=== PATIENT | female | born 1960 | race Caucasian/White ===

== ENCOUNTER 2017-02-08 00:27 | Emergency (ER) | payer BC ==
[2017-02-08 01:30] LABS: BASOPHIL % 0.5 % (0-2); PLATELET COUNT 220 x10^3mcL (130-400); RED CELL DISTRIBUTION WIDTH 13.1 % (11.5-14.5)
[2017-02-08 01:32] LABS: CALCIUM 9.7 mg/dL (8.5-10.1); CARBON DIOXIDE 30.7 mmol/L (21-32); CHLORIDE SERUM 102 mmol/L (98-107); GFR1 > 60 mL/min; GLUCOSE SERUM 150 mg/dL (74-106); POTASSIUM SERUM 3.8 mmol/L (3.5-5.1); SODIUM SERUM 143 mmol/L (136-145)
[2017-02-08 01:37] LABS: ALBUMIN 4.2 g/dL (3.4-5.0); ALKALINE PHOSPHATASE 79 U/L (46-116); ALT/SGPT 42 U/L (14-59); AMYLASE 39 U/L (25-115); AST/SGOT 19 U/L (15-37); BILIRUBIN TOTAL 0.32 mg/dL (0.20-1.00); LIPASE 218 IU/L (73-393); TOTAL PROTEIN, SERUM 8.5 g/dL (6.4-8.2)
[2017-02-08 02:44] VITALS: BP 157/105
[2017-02-08] MEDS ORDERED: SYNTHROID0.05 MG (22:11)
== END 2017-02-08 02:35 | disposition left against medical advice (07) ==
LOC: ED 00:27
PROVIDERS: Emergency Medicine
DX: R10.13 Epigastric pain (principal); R07.89 Other chest pain; M54.9 Dorsalgia, unspecified
CPT/HCPCS: 36415; J2270; J2405; J7030; Q0092; Q9967

== ENCOUNTER 2017-02-08 18:29 | Inpatient (IN) | payer BC ==
[~2017-02-08] VITALS: Ht 162.6 cm; Wt 93.4 kg
[2017-02-08 20:22] LABS: BASOPHIL % 0.5 % (0-2); PLATELET COUNT 213 x10^3mcL (130-400); RED CELL DISTRIBUTION WIDTH 12.9 % (11.5-14.5)
[2017-02-08 20:29] LABS: CALCIUM 9.4 mg/dL (8.5-10.1); CARBON DIOXIDE 27.7 mmol/L (21-32); CHLORIDE SERUM 101 mmol/L (98-107); CREATININE SERUM 0.9 mg/dL (0.6-1.0); GFR1 > 60 mL/min; GLUCOSE SERUM 122 mg/dL (74-106); POTASSIUM SERUM 3.6 mmol/L (3.5-5.1); SODIUM SERUM 138 mmol/L (136-145)
[2017-02-08 20:38] LABS: ALKALINE PHOSPHATASE 77 U/L (46-116); ALT/SGPT 33 U/L (14-59); AMYLASE 31 U/L (25-115); AST/SGOT 18 U/L (15-37); BILIRUBIN TOTAL 0.6 mg/dL (0.20-1.00); LIPASE 135 IU/L (73-393)
[2017-02-08] MEDS ORDERED: SYNTHROID0.05 MG (22:11)
[2017-02-08 22:33] LABS: MAGNESIUM 1.9 mg/dL (1.8-2.4); PHOSPHOROUS 3.4 mg/dL (2.5-4.9)
[2017-02-08 22:34] LABS: CHOLESTEROL/HDL RATIO 3.2
[2017-02-08 22:41] LABS: FREE T4 0.98 ng/dL (0.76-1.46); FREE THYROXINE INDEX 2.7 ug/dL (1.4-4.5); T4(THYROXINE) 8.3 ug/dL (4.7-13.3)
[2017-02-08 22:52] VITALS: BP 129/75
[2017-02-09 04:14] LABS: BASOPHIL % 0.3 % (0-2); PLATELET COUNT 203 x10^3mcL (130-400); RED CELL DISTRIBUTION WIDTH 13.1 % (11.5-14.5)
[2017-02-09 05:28] LABS: CALCIUM 8.3 mg/dL (8.5-10.1); CARBON DIOXIDE 25.8 mmol/L (21-32); CHLORIDE SERUM 102 mmol/L (98-107); CREATININE SERUM 0.9 mg/dL (0.6-1.0); GFR1 > 60 mL/min; GLUCOSE SERUM 118 mg/dL (74-106); MAGNESIUM 1.8 mg/dL (1.8-2.4); PHOSPHOROUS 4.1 mg/dL (2.5-4.9); POTASSIUM SERUM 3.2 mmol/L (3.5-5.1); SODIUM SERUM 133 mmol/L (136-145)
[2017-02-09 05:33] VITALS: BP 106/54
[2017-02-09 10:52] VITALS: BP 120/69
[2017-02-09 11:43] LABS: UA SPECIFIC GRAVITY >=1.030 (1.005-1.035); microscopic required? YES; urine erythrocyte NEGATIVE (NEGATIVE)
[2017-02-09 13:01] VITALS: BP 133/71
[2017-02-09 16:00] LABS: AMPHETAMINE QUAL UR NONE DETECTED (NEG <=1000)
[2017-02-09 18:05] VITALS: BP 142/81
[2017-02-09 21:33] VITALS: BP 125/73
[2017-02-10 05:27] VITALS: BP 126/88
[2017-02-10 06:15] LABS: BASOPHIL % 0.6 % (0-2); PLATELET COUNT 177 x10^3mcL (130-400); RED CELL DISTRIBUTION WIDTH 12.9 % (11.5-14.5)
[2017-02-10 06:25] LABS: CALCIUM 8.5 mg/dL (8.5-10.1); CARBON DIOXIDE 26.2 mmol/L (21-32); CHLORIDE SERUM 106 mmol/L (98-107); CREATININE SERUM 0.8 mg/dL (0.6-1.0); GFR1 > 60 mL/min; GLUCOSE SERUM 104 mg/dL (74-106); POTASSIUM SERUM 3.7 mmol/L (3.5-5.1); SODIUM SERUM 142 mmol/L (136-145)
[2017-02-10 10:00] VITALS: BP 150/87
[2017-02-10 14:00] VITALS: BP 161/87
[2017-02-10] MEDS ORDERED: LIPI10 PO (16:12)
[2017-02-10] MEDS ORDERED: METOPROLOL TART25 M1 PO (16:13)
[2017-02-10] MEDS ORDERED: CAR1 PO (16:13)
[2017-02-10] MEDS ORDERED: PROT40I IV (16:14)
[2017-02-10 16:54] VITALS: BP 167/87
[2017-02-10 17:53] VITALS: BP 153/74
== END 2017-02-10 20:00 | disposition short-term general hospital (02) | DRG 391 ==
LOC: ED 18:29 → DU 22:02 → MU 22:02 → DU 22:43 → MU 02-10 10:43
PROVIDERS: Emergency Medicine; ADMIT Family Medicine
DX: K21.9 Gastro-esophageal reflux disease without esophagitis (principal); N17.0 Acute kidney failure with tubular necrosis; I10 Essential (primary) hypertension; E03.9 Hypothyroidism, unspecified; E78.5 Hyperlipidemia, unspecified
CPT/HCPCS: 43235; 83880; 84439; C9113; J1170; J1200; J1610; J2250; J2270; J2310; J2405; J3010; J3480; J3490; J7030; Q0092